=== PATIENT | male | born 1965 | race African-American/Black ===

== ENCOUNTER 2017-04-04 15:14 | Emergency (ER) | payer MEDICAID ==
[~2017-04-04] VITALS: Ht 175.3 cm; Wt 82.0 kg
[2017-04-04] MEDS ORDERED: SODIUM CHLORIDE 0.9% 1,000 ML IV ONE ×2 (15:36→15:53)
[2017-04-04] MEDS ORDERED: HYDRALAZINE HCL 50MG TABLET PO ONE (15:45)
[2017-04-04 16:11] LABS: BG BASE EXCESS -2.8 mmol/L (-2.0-2.0); BG CARBOXYHEMOGLOBIN 5.9 % (0.5-1.5); BG FRACTION INSPIRED OXYGEN 21; BG HCO3 ACT 19.8 mmol/L (22.0-26.0); BG METHEMOGLOBIN 0.2 % (0.0-1.5); BG OXYGEN SATURATION 92.5 % (92.0-98.5); BG OXYHEMOGLOBIN 86.9 % (94.0-97.0); BG PCO2 29.3 mmHg (35.0-45.0); BG PH 7.448 (7.350-7.450); BG PO2 59.6 mmHg (75.0-100.0); BG SAMPLE SITE RIGHT RADIAL; BG TOTAL HEMOGLOBIN 15.1 g/dL (12.0-18.0); BG VENT MODE ROOM AIR
[2017-04-04 16:34] LABS: BASOPHILS % 0.3 % (0.0-2.0); EOSINOPHILS % 0.4 % (0.0-5.0); HEMATOCRIT. 39.2 % (42.0-52.0); HEMOGLOBIN. 13.9 g/dL (14.0-18.0); LYMPHOCYTES % 14.9 % (20.0-50.0); MEAN CORPUSCULAR HEMOGLOBIN 31.9 pg (28.0-32.0); MEAN PLATELET VOLUME 7.7 fl (7.4-10.4); NEUTROPHILS % 76.4 % (40.0-76.0); PLATELET 344 x1000/uL (130-400); RED BLOOD CELL COUNT 4.36 mill/uL (4.7-6.1); RED CELL DISTRIBUTION WIDTH 13.1 % (11.6-14.6)
[2017-04-04 16:46] LABS: BETA HYDROXYBUTYRATE 3.5 mMol/L (0.0-0.3); CHLORIDE 95 mEq/L (98-107)
[2017-04-04] MEDS ORDERED: INSULIN REGULAR (HUMULIN R) 300UNITS/3ML IV ONE (17:15)
[2017-04-04] MEDS ORDERED: KETOROLAC 30MG/ML VIAL IV ONE (17:15)
[2017-04-04 18:19] VITALS: BP 133/72
== END 2017-04-04 18:21 | disposition home or self-care (01) ==
LOC: ER 15:31
DX: H60.91 Unspecified otitis externa, right ear (principal); H66.91 Otitis media, unspecified, right ear; E11.65 Type 2 diabetes mellitus with hyperglycemia; I10 Essential (primary) hypertension; E78.5 Hyperlipidemia, unspecified; H53.8 Other visual disturbances
CPT/HCPCS: 36415; 36600; 71045; 80053; 82010; 82375; 82805; 82962; 85025; 93005; 96361; 96374; 96375; 99285; J1815; J1885; J7030